=== PATIENT | female | born 1980 | race African-American/Black ===

== ENCOUNTER 2016-11-24 04:50 | Emergency (ER) | payer OTHER, MEDICAID ==
[~2016-11-24] VITALS: Ht 157.5 cm; Wt 118.0 kg
[~2016-11-24 04:50] MED LIST: ASPI81TA82 PO; CLON.1 PO; GLIP5 PO; GLUCTAB PO; NAPR-576 PO; VICT18IN
[2016-11-24 04:51] VITALS: BP 144/93; PULSE 93; RESP 20; TEMP 98; O2SAT 99
[2016-11-24] MEDS ORDERED: GLIP5TAB8 PO (05:24)
[2016-11-24] MEDS ORDERED: VICT18IN SQ (05:24)
[2016-11-24] MEDS ORDERED: METF500T PO (05:24)
--- NOTE | 2016-11-24 05:35 | PD ---
HPI Chief Complaint: Cold / Flu Symptoms Time Seen by Provider: 05:28 Travel History International Travel<30 days: No Contact w/Intl Traveler<30days: No Traveled to known affect area: No History of Present Illness HPI 36-year-old black female presents to emergency department with complains of coughing congestion since . She states that she has been back in town now for the last 2 weeks. She had moved to the [place] and had been there for some time. She states that she is out of her diabetic medicines. She hasn't taken anything in over a month. She denies any fever chills. No ear pain or sore throat. No shortness of breath or wheezing. No abdominal pain or diarrhea. No urinary symptoms. PFSH Past Medical History Narrative Medical Diabetes, hypertension Cardiovascular Problems: Yes (HTN) Diabetes: Yes (metformin) Patient Takes Glucophage: Yes Diminished Hearing: No Headaches: Yes Hypertension: Yes (NO MEDS) Immunizations Current: No Migraines: Yes Tetanus Vaccination: < 5 Years ?: Unknown LMP: 11/17/16 : 4 Para: 5 Tubal Ligation: Yes (2004) Past Surgical History Section: Yes (X2) Cholecystectomy: Yes (2007) Social History Alcohol Use: No Tobacco Use: No Substance Use: No Allergies-Medications (Allergen,Severity, Reaction): Coded Allergies: acetaminophen (Unverified Allergy, Intermediate, Nausea/Vomiting, 10/24/16) oxycodone (Unverified Allergy, Intermediate, Nausea/Vomiting, 10/24/16) diphenhydramine (Unverified Adverse Reaction, Severe, TONGUE ITCH, 10/24/16 ) Reported Meds & Prescriptions Reported Meds & Active Scripts Active Reported Victoza Inj (Liraglutide Inj) 18 Mg/3 Ml Pen 1.8 Mg SQ DAILY Glipizide 5 Mg Tab 5 Mg PO BIDAC Take 30 minutes before a meal Metformin (Metformin HCl) 500 Mg Tab 500 Mg PO BIDPC With meals Review of Systems Except as stated in HPI: all other systems reviewed are Neg Physical Exam Narrative GENERAL: Well-developed, well-nourished in no acute distress. Nontoxic appearing. HEAD: Normocephalic, atraumatic. EYES: Pupils equal round and reactive. Extraocular motions intact. No scleral icterus. No injection or drainage. ENT: TMs clear without erythema. The external auditory canals clear. Nose: clear . Posterior pharynx is pink and moist. No tonsillar edema or exudate. Uvula midline. Airway patent. NECK: Trachea midline.Supple, nontender, moves head freely. No central bony tenderness or spasm. CARDIOVASCULAR: Regular rate and rhythm without murmurs, gallops, or rubs. RESPIRATORY: Clear to auscultation. Breath sounds equal bilaterally. No wheezes , rales, or rhonchi. GASTROINTESTINAL: Abdomen soft, non-tender, nondistended. No hepato-splenomegaly , or palpable masses. No guarding. EXTREMITIES: No clubbing, cyanosis, or edema. No joint tenderness, effusion, or edema noted. BACK: Nontender without deformity or crepitance. No flank tenderness. Data Data Last Documented VS Vital Signs Date Time Temp Pulse Resp B/P (MAP) Pulse Ox O2 Delivery O2 Flow Rate FiO2 11/24/16 05:25 14 97 Room Air 11/24/16 04:51 98.0 93 144/93 (110) [facility] Medical Decision Making Medical Screen Exam Complete: Yes Emergency Medical Condition: Yes Medical Record Reviewed: Yes Differential Diagnosis MDM: High Differential diagnoses: Pneumonia, bronchitis, URI, asthma, RAD, diabetes Narrative Course Patient's exam is unremarkable. I suspect this is a viral URI. Patient is encouraged to follow-up with the [facility] today for medication refill and treatment of her diabetes. This is URI Diagnosis Primary Impression: Upper respiratory tract infection Qualified Codes: J06.9 - Acute upper respiratory infection, unspecified; B97.89 - Other viral agents as the cause of diseases classified elsewhere Patient Instructions: General Instructions Additional Instructions: Rest. Increase fluids. Sugar-free cough medicine. Ibuprofen for any fever or discomfort. Follow-up with the [facility] today for diabetic management. Med/Other Pt SpecificInfo: No Change to Meds Disposition: 01 DISCHARGE HOME Condition: Stable Kvng Linn Nov 24, 2016 05:35
== END 2016-11-24 05:57 | disposition home or self-care (01) ==
LOC: NEPD 04:50
DX: J06.9 Acute upper respiratory infection, unspecified (principal); B97.89 Other viral agents as the cause of diseases classified elsewhere; E11.9 Type 2 diabetes mellitus without complications; Z79.84 Long term (current) use of oral hypoglycemic drugs
CPT/HCPCS: 99282

== ENCOUNTER → 2017-01-12 22:37 | Emergency (ER) | payer MEDICAID, OTHER ==
[~2017-01-12] VITALS: Ht 160 cm; Wt 115.0 kg
[~2017-01-12 22:37] MED LIST changes: -ASPI81TA82 PO; -CLON.1 PO; -GLIP5 PO; +GLIP5TAB8 PO; -GLUCTAB PO; +METF500T PO; -NAPR-576 PO; -VICT18IN; +VICT18IN SQ
[2017-01-12 22:40] VITALS: BP 171/103; PULSE 87; RESP 16; TEMP 98.7; O2SAT 99
== END | disposition left against medical advice (07) ==
LOC: NETRI 22:37
DX: R10.9 Unspecified abdominal pain (principal); M54.9 Dorsalgia, unspecified; Z53.21 Procedure and treatment not carried out due to patient leaving prior to being seen by health care provider
CPT/HCPCS: 99281